=== PATIENT | female | born 1980 | race Caucasian/White ===

== ENCOUNTER → 2017-05-26 | Outpatient (CLI) | payer BC ==
--- NOTE | 2017-05-26 08:47 | US ---
EXAMINATION TYPE: US thyroid st tissue head/neck DATE OF EXAM: 05/26/2017 COMPARISON: US CLINICAL HISTORY: E04.1 SINGLE THYROID NODULE. Pt states F/U from previous, no complaints at this maday e GLAND SIZE: Right Lobe: 4.3 x 1.1 x 1.6 cm Overall Parenchyma: homogenous Left Lobe: 4.1 x 1.0 x 1.4 cm Overall Parenchyma: homogeneous Isthmus Thickness: 0.2 cm Bilateral neck scanned, no evidence of lymphadenopathy. No evidence of nodules bilaterally IMPRESSION: No significant abnormality seen.
== END | disposition home or self-care (01) ==
LOC: RADUSWWP 08:18
PROVIDERS: ATTEND Family Medicine
DX: E04.1 Nontoxic single thyroid nodule (principal)
CPT/HCPCS: 76536

== ENCOUNTER → 2021-12-20 | Outpatient (CLI) | payer BC ==
--- NOTE | 2021-12-23 09:24 | MM ---
Reason for Exam: Screening (asymptomatic). Baseline mammogram. Patient History: Menarche at age 8. First Full-Term at age 20. Patient has history of breast feeding. Patient used Hormonal Contraceptives for 5 years. Last menstrual period: 12/10/2021 Risk Values: Judie 5 year model risk: 0.6%. NCI Lifetime model risk: 9.7%. Prior Study Comparison: Patient's first Mammogram. Tissue Density: There are scattered fibroglandular densities. Findings: Analyzed By CAD. There is a ovoid mass within the right breast middle depth upper outer aspect measuring 9 mm. There is a ovoid mass within the left breast, posterior depth, inferiorly and posterior to the nipple aspect measuring 5 mm. There is a ovoid bilobed appearing mass in the left breast, anterior depth, medial lower quadrant measuring 5 mm. There is no suspicious group of microcalcifications. Overall Assessment: Incomplete: need additional imaging evaluation, BI-RAD 0 Management: Diagnostic Mammogram of both breasts. Diagnostic Breast Ultrasound of both breasts. A clinical breast exam by your physician is recommended on an annual basis and results should be correlated with mammographic findings. Electronically signed and approved by: Brayden Baez DO
== END | disposition home or self-care (01) ==
LOC: RADMAMWWP 15:30
PROVIDERS: ATTEND Family Medicine
DX: Z12.31 Encounter for screening mammogram for malignant neoplasm of breast (principal)
CPT/HCPCS: 77063; 77067

== ENCOUNTER → 2021-12-26 | Outpatient (CLI) | payer BC ==
--- NOTE | 2021-12-26 08:24 | MM ---
Reason for Exam: Additional evaluation requested from abnormal screening. Last screening mammogram was performed less than 1 month ago. Patient History: Menarche at age 8. First Full-Term at age 20. Patient has history of breast feeding. Patient used Hormonal Contraceptives for 5 years. Last menstrual period: 12/10/2021 Risk Values: Judie 5 year model risk: 0.6%. NCI Lifetime model risk: 9.7%. Prior Study Comparison: 12/20/2021 Bilateral MG 3D screening mammo w/cad, [facility]. Tissue Density: The breast tissue is heterogeneously dense. This may lower the sensitivity of mammography. Findings: Analyzed By CAD. On the right, 8 mm oval, circumscribed nodule corresponds to the 9:00 position on the lateral view. Middle depth. Lateral right breast ultrasound is recommended. On the left, there is some subtle 5 mm low density circumscribed nodularity projecting behind the retroareolar plane. Recommend scanning the periareolar region and medial aspect of the breast. Overall Assessment: Incomplete: need additional imaging evaluation, BI-RAD 0 Management: Diagnostic Breast Ultrasound of both breasts. 1. Ultrasound right breast lateral 6:00 to 12:00, particular attention to the 9:00 position. 2. Ultrasound left breast the entire periareolar region as well as the medial half. Electronically signed and approved by: Freeman Riggins M.D. Radiologist
--- NOTE | 2021-12-26 08:53 | USB ---
Reason for Exam: Additional evaluation requested from abnormal screening. Patient History: Menarche at age 8. First Full-Term at age 20. Patient has history of breast feeding. Patient used Hormonal Contraceptives for 5 years. Risk Values: Judie 5 year model risk: 0.6%. NCI Lifetime model risk: 9.7%. Technique: Method: Targeted. Patient Position: Supine. Prior Study Comparison: 12/20/2021 Bilateral MG 3D screening mammo w/cad, [facility]. Findings: The lateral section of the breast of the right breast, the medial section of the breast of the left breast, the axilla of the right breast and the retroareolar of both breasts were scanned. Targeted right breast ultrasound 6:00 to 12:00 shows a 9 x 8 x 4 mm intramammary lymph node. This is at 9:00, 7 cm from the nipple. Likely mammographic correlate. As no prior mammograms are available to determine stability, six-month follow-up mammogram is recommended. No other solid or cystic lesion on the right. Targeted left breast ultrasound, 6:00 to 12:00 including the periareolar region shows a 4 x 3 x 2 mm too small to characterize circumscribed oval lesion, possible tiny debris filled cyst. This is located at 8:00 periareolar region. Unclear if this is a mammographic correlate. Six-month follow-up to reassess this region. Also mammographic follow-up to reassess the left breast nodularity. Overall Assessment: Probably benign, BI-RAD 3 Management: Diagnostic Mammogram of both breasts in 6 months. Diagnostic Breast Ultrasound of the left breast in 6 months. 1. Six-month follow-up diagnostic bilateral mammograms for the bilateral breast nodularity, likely an intramammary lymph node on the right. 2. Six-month follow-up left breast ultrasound for the indeterminate tiny 8:00 lesion, possible 4 mm debris-filled cyst. 3. Patient should continue monthly self breast exams. 4. This exam should not preclude additional follow-up of suspicious palpable abnormalities. Electronically signed and approved by: Freeman Riggins M.D. Radiologist
== END | disposition home or self-care (01) ==
LOC: RADMAMWWP 07:40
PROVIDERS: ATTEND Family Medicine
DX: R92.8 Other abnormal and inconclusive findings on diagnostic imaging of breast (principal)
CPT/HCPCS: 77062; 77066